=== PATIENT | female | born 1985 | race American Indian/Alaskan Native ===

== ENCOUNTER 2018-05-08 13:14 | Emergency (ER) | payer MEDICAID ==
[2018-05-08 13:23] VITALS: BP 162/99
[2018-05-08 14:26] LABS: HCG Qualitative,Urine Positive (Negative)
[2018-05-08 14:28] LABS: Bacteria,Urine 1+ /HPF (Negative); Bilirubin,Urine NEG (Negative); Blood,Urine NEG (Negative); Color,Urine Yellow (Yellow); Mucus,Urine FEW /HPF; Protein,Urine <15 mg/dL mg/dL (Negative); Urobilinogen,Urine < 2.0 mg/dL (<2.0)
--- NOTE | 2018-05-08 14:44 | Emergency Department Report ---
ED Female HPI - General Chief complaint: Vaginal Bleeding Stated complaint: 3MTS /BLEEDING Time Seen by Provider: 05/08/18 14:25 Source: patient Mode of arrival: Ambulatory Limitations: No Limitations - History of Present Illness Initial comments: Ms. Reyna is a 32 yo patient who is 13 weeks . Estimated due date 11/15/2018. She is followed by Dr. Sid Reed [employer]. She plans to deliver at [facility]. She presents with vaginal spotting. +small amount of vaginal bleeding with wiping. She denies pain. She denies abdominal pain. She denies back pain. She's been in good health. Her [employer] referred her to the ED for evaluation. MD Complaint: vaginal bleeding -: Gradual, days(s) (1) Severity: mild Are you Now?: Yes Associated Symptoms: denies other symptoms - Related Data Allergies Allergy/AdvReac Type Severity Reaction Status Date / Time No Known Allergies Allergy Verified 05/08/18 13:23 ED Review of Systems ROS: Stated complaint: 3MTS /BLEEDING Other details as noted in HPI Comment: All other systems reviewed and negative Constitutional: denies: fever, malaise Respiratory: denies: cough Cardiovascular: denies: chest pain ED Past Medical Hx - Past Medical History Previous Medical History?: No - Surgical History Past Surgical History?: Yes Additional Surgical History: - Social History Smoking Status: Never Smoker Substance Use Type: None ED Physical Exam - General Limitations: No Limitations General appearance: alert, in no apparent distress - Head Head exam: Present: atraumatic, normocephalic - Eye Eye exam: Present: normal appearance - ENT ENT exam: Present: mucous membranes moist - Neck Neck exam: Present: normal inspection. Absent: tenderness, meningismus - Respiratory Respiratory exam: Present: normal lung sounds bilaterally. Absent: respiratory distress, wheezes, rales, rhonchi - Cardiovascular Cardiovascular Exam: Present: regular rate, normal rhythm, normal heart sounds. Absent: systolic murmur, diastolic murmur, rubs, gallop - GI/Abdominal GI/Abdominal exam: Present: soft, normal bowel sounds. Absent: distended, tenderness, guarding, rebound - Extremities Exam Extremities exam: Present: normal inspection - Back Exam Back exam: Present: normal inspection - Neurological Exam Neurological exam: Present: alert, oriented X3 - Psychiatric Psychiatric exam: Present: normal affect, normal mood - Skin Skin exam: Present: warm, dry, intact, normal color. Absent: rash ED Course Vital Signs 05/08/18 13:19 Temperature 98.7 F Pulse Rate 100 H Respiratory 16 Rate Blood Pressure 162/99 O2 Sat by Pulse 100 Oximetry ED Medical Decision Making - Lab Data Result diagrams: 05/08/18 14:56 Laboratory Results - last 24 hr 05/08/18 05/08/18 05/08/18 13:51 14:56 14:56 WBC 7.4 RBC 4.20 Hgb 11.9 Hct 34.9 MCV 83 MCH 28 MCHC 34 RDW 13.2 Plt Count 224 Lymph % (Auto) 12.2 L Cowley % (Auto) 6.1 Eos % (Auto) 1.0 Baso % (Auto) 0.5 Lymph # 0.9 L Cowley # 0.5 Eos # 0.1 Baso # 0.0 Seg Neutrophils % 80.2 H Seg Neutrophils # 6.0 HCG, Quant 70116 H Urine Color Yellow Urine Turbidity Slightly-cloudy Urine pH 7.0 Ur Specific Altha 1.011 Urine Protein <15 mg/dl Urine Glucose (UA) Neg Urine Ketones Neg Urine Blood Neg Urine Nitrite Neg Ur Reducing Substances Not Reportable Urine Bilirubin Neg Urine Ictotest Not Reportable Urine Urobilinogen < 2.0 Ur Leukocyte Esterase Tr Urine WBC (Auto) 1.0 Urine RBC (Auto) 1.0 U Epithel Cells (Auto) 4.0 Urine Bacteria (Auto) 1+ Urine Mucus Few Urine HCG, Qual Positive A Blood Type 05/08/18 14:56 WBC RBC Hgb Hct MCV MCH MCHC RDW Plt Count Lymph % (Auto) Cowley % (Auto) Eos % (Auto) Baso % (Auto) Lymph # Cowley # Eos # Baso # Seg Neutrophils % Seg Neutrophils # HCG, Quant Urine Color Urine Turbidity Urine pH Ur Specific Altha Urine Protein Urine Glucose (UA) Urine Ketones Urine Blood Urine Nitrite Ur Reducing Substances Urine Bilirubin Urine Ictotest Urine Urobilinogen Ur Leukocyte Esterase Urine WBC (Auto) Urine RBC (Auto) U Epithel Cells (Auto) Urine Bacteria (Auto) Urine Mucus Urine HCG, Qual Blood Type A POSITIVE Vital Signs - 8 hr 05/08/18 13:19 Temperature 98.7 F Pulse Rate 100 H Respiratory 16 Rate Blood Pressure 162/99 O2 Sat by Pulse 100 Oximetry - Radiology Data Radiology results: report reviewed Viable IUP which corresponds with estimated gestational age by dates - Medical Decision Making Ms. Reyna presents with threatened miscarriage, viable IUP on US RH-, no evidence of UTI patient given reassurance Critical care attestation.: If time is entered above; I have spent that time in minutes in the direct care of this critically ill patient, excluding procedure time. ED Disposition Clinical Impression: Threatened miscarriage Disposition: [id number]-01 TO HOME OR SELFCARE Is pt being admited?: No Does the pt Need Aspirin: No Condition: Stable Instructions: Threatened Miscarriage (ED) Referrals: PRIMARY CARE, [Primary Care Provider] - 3-5 Days
[2018-05-08 15:13] LABS: Basophils % (Auto) 0.5 % (0.0-1.8); Eosinophils # (Auto) 0.1 K/mm3 (0.0-0.4); Hematocrit 34.9 % (30.3-42.9); Hemoglobin 11.9 gm/dl (10.1-14.3); Lymphocytes # (Auto) 0.9 K/mm3 (1.2-5.4); Lymphocytes % (Auto) 12.2 % (13.4-35.0); Mean Corpuscular HGB Conc 34 % (30-34); Mean Corpuscular Hemoglobin 28 pg (28-32); Mean Corpuscular Volume 83 fl (79-97); Monocytes # (Auto) 0.5 K/mm3 (0.0-0.8); Monocytes % (Auto) 6.1 % (0.0-7.3); Platelet Count 224 K/mm3 (140-440); Red Cell Distribution Width 13.2 % (13.2-15.2)
--- NOTE | 2018-05-08 16:44 | Ultrasound Report ---
FINAL REPORT EXAM: US OB < = 14 WEEKS FETUS HISTORY: vaginal bleeding COMPARISON: None. TECHNIQUE: Transabdominal obstetric imaging was performed. FINDINGS: The uterus measures 13.9 x 8.1 x 10.4 centimeters. There is a single live intrauterine with heart rate of 165 beats per minute. There is a posterior placenta. There is a contraction in the inferior aspect of the placenta. Biparietal diameter corresponds to a gestational age of 13 weeks, 4 days. Femoral length corresponds to a gestational age of 12 weeks, 2 days. Composite gestational age by ultrasound is 13 weeks, 0 days, with estimated date of delivery of 11/13/2017. The right ovary measures 3.3 x 1.6 x 2.6 centimeters. There is a simple appearing 2 centimeter follicle within the right ovary. The left ovary measures 3.5 x 1.7 x 2.8 centimeters and is normal in morphology. IMPRESSION: Single live intrauterine with composite gestational age by ultrasound of 30 weeks, 0 days, with estimated date of delivery of 11/13/2017.
== END 2018-05-08 17:40 | disposition home or self-care (01) ==
LOC: ED 13:14
DX: O20.0 Threatened abortion (principal); Z3A.13 13 weeks gestation of pregnancy
CPT/HCPCS: 36415; 76801; 81001; 81025; 84702; 85025; 86900; 86901; 99284